=== PATIENT | male | born 1975 | race Caucasian/White ===

== ENCOUNTER 2020-04-28 00:51 | Emergency (ER) | payer SELFPAY ==
[~2020-04-28] VITALS: Ht 170.2 cm; Wt 99.8 kg
[2020-04-28 00:54] VITALS: Ht 170.2 cm; Wt 99.8 kg
[2020-04-28 04:49] LABS: BASOPHIL % 0.3 % (0-2); PLATELET COUNT 305 x10^3mcL (130-400); RED CELL DISTRIBUTION WIDTH 12.5 % (11.5-14.5)
[2020-04-28 05:00] LABS: CALCIUM 8.7 mg/dL (8.5-10.1); CARBON DIOXIDE 23.4 mmol/L (21-32); CHLORIDE SERUM 101 mmol/L (98-107); CREATININE SERUM 1.3 mg/dL (0.7-1.3); GFR1 > 60 mL/min; GLUCOSE SERUM 122 mg/dL (74-106); POTASSIUM SERUM 3.1 mmol/L (3.5-5.1); SODIUM SERUM 137 mmol/L (136-145)
[2020-04-28 05:07] LABS: ALBUMIN 3.7 g/dL (3.4-5.0); ALKALINE PHOSPHATASE 52 U/L (46-116); ALT/SGPT 31 U/L (16-63); AST/SGOT 32 U/L (15-37); BILIRUBIN TOTAL 1.2 mg/dL (0.20-1.00); TOTAL PROTEIN, SERUM 7.7 g/dL (6.4-8.2)
[2020-04-28 07:53] VITALS: BP 133/95
[2020-04-28 12:08] LABS: AMPHETAMINE QUAL UR POSITIVE (See below)
== END 2020-04-28 07:53 | disposition home or self-care (01) ==
LOC: ED 00:51 → EDBD 00:51 → ED 07:53
PROVIDERS: Emergency Medicine
DX: R40.4 Transient alteration of awareness (principal)
CPT/HCPCS: G0480; J7030